=== PATIENT | male | born 1965 | race Caucasian/White ===

== ENCOUNTER → 2019-03-08 | Day surgery (SDC) | payer OTHER ==
[~2019-03-08] MED LIST: CIPRO750 MG PO; LISINOPRIL20 MG; SIMVASTATIN40 MG; SYNTHROID200 MCG; WELLBUTRIN XL150 MG
== END | disposition home or self-care (01) ==
LOC: ADM 03-05 13:15 → AMB-ENDOS 06:20
DX: K57.32 Diverticulitis of large intestine without perforation or abscess without bleeding (principal); K64.1 Second degree hemorrhoids

== ENCOUNTER 2020-07-08 07:12 | Day surgery (SDC) | payer OTHER ==
[~2020-07-08 07:12] MED LIST changes: +SYNTHROID175 MCG PO; +ZESTRIL10 M1 PO
== END 2020-07-08 19:00 | disposition home or self-care (01) ==
LOC: CIR.AMB 07:12
PROVIDERS: ATTEND Colon & Rectal Surgery
DX: K64.8 Other hemorrhoids (principal); K64.4 Residual hemorrhoidal skin tags; Z20.828 Contact with and (suspected) exposure to other viral communicable diseases